=== PATIENT | female | born 1930 | race Caucasian/White ===

== ENCOUNTER 2017-06-13 15:15 | Outpatient (CLI) | payer MEDICARE, BC ==
--- NOTE | 2017-06-13 18:08 | ULT ---
ULTRASOUND WITH DOPPLER DUPLEX VENOUS LOWER EXTREMITY LEFT: 06/13/17 HISTORY: 86-year-old female with left leg pain, M79.605. Focal painful area at the lateral aspect of the mid calf. TECHNIQUE: Color flow Doppler, spectral waveform analysis of pulsed Doppler, and cunningham-scale imaging with cristina iftikhar and augmentation, were used to evaluate the left common femoral, femoral, popliteal, posterior t ibial, and superficial femoral, veins; and the proximal portions of the profunda femoral and greater saphenous, veins. FINDINGS: There is normal compressibility, demonstration of blood flow by color Doppler and pulsed Doppler, and response to augmentation, in all interrogated veins. There is a heterogeneously moderately hyperecho ic mass with ill-defined margins at the lateral aspect of the left mid calf, corresponding to the reg ion of pain. This mass produces acoustic shadowing, and measures approximately 2.5 x 3 x 1.5 cm. IMPRESSION: 1. No deep vein thrombosis in the left lower extremity. 2. Heterogeneously hyperechoic, apparently solid mass at the left lateral calf, corresponding to the site of the pain. Unknown etiology. Recommend further evaluation with MRI of the left leg (calf) with and without contrast (if there are contraindications to MRI, CT with contrast would be recommen ded). alison[] POS: LULI
== END 2017-06-13 15:16 | disposition home or self-care (01) ==
LOC: ULT 15:15
PROVIDERS: ATTEND Family Medicine
DX: M79.605 Pain in left leg (principal); R22.42 Localized swelling, mass and lump, left lower limb

== ENCOUNTER 2017-06-28 08:55 | Outpatient (CLI) | payer MEDICARE, BC ==
[2017-06-28] MEDS ORDERED: Gadobenate Dimeglumine 529 MG/1 ML (20ML VIAL) ONE ×2 (12:07→12:08)
--- NOTE | 2017-06-28 12:49 | MRI ---
MRI LEFT LOWER EXTREMITY WITH AND WITHOUT CONTRAST: HISTORY: Mass. COMPARISON: Ultrasound 06/13/17. FINDINGS: BONES: Intact. No fracture. No malalignment. No fracture. No malalignment. No periosteal osteitis or er osions. Normal marrow signal. No marrow signal replacement. MUSCLES: Within the most lateral margin of the psoas muscle just lateral to the fibular cortex is a well-defin ed area of T1 hyperintense, T2 hypointense, and complete loss of signal fat suppressed images mass me asuring 2.6 x 0.9 x 2.5 cm. There are normal muscle fibers coursing through this. This occurs at the area of interest marker. No overlying fascial thickening. The remainder of the muscles appear normal. There could be some low-grade fluid signal within the bi lateral head gastrocnemius as well as sartorius. No significant muscle atrophy. 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 No abnormal enha ncement to suggest sarcomatous degeneration. POS: [facility]
== END 2017-06-28 08:56 | disposition home or self-care (01) ==
LOC: MRI 08:55
PROVIDERS: ATTEND Family Medicine
DX: R22.42 Localized swelling, mass and lump, left lower limb (principal); D17.9 Benign lipomatous neoplasm, unspecified
CPT/HCPCS: A9579

== ENCOUNTER 2017-10-09 09:42 | Outpatient (CLI) | payer MEDICARE, BC | END 2017-10-09 09:43 | disposition home or self-care (01) | LOC: BICMAMMO 09:42 | PROVIDERS: ATTEND Family Medicine | DX: M81.0 Age-related osteoporosis without current pathological fracture (principal); M85.852 Other specified disorders of bone density and structure, left thigh | CPT/HCPCS: 77080 ==

== ENCOUNTER 2018-09-12 07:32 | Emergency (ER) | payer MEDICARE, BC ==
--- NOTE | 2018-09-12 09:05 | RAD ---
EXAM: CHEST TWO VIEWS: History: Cough. Comparison: 06-23-15 FINDINGS: Heart size is within normal limits. Mild increased linear interstitial markings bilaterally. 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 Biapical pleural thickening. No confluent pneumonia, overt ed sky, or pleural effusion. IMPRESSION: Mild chronic lung changes. No acute intrathoracic disease. Atherosclerosis of the aorta. POS: [facility]
== END 2018-09-12 08:30 | disposition home or self-care (01) ==
LOC: SCSER 07:32
DX: J06.9 Acute upper respiratory infection, unspecified (principal); E78.5 Hyperlipidemia, unspecified; I10 Essential (primary) hypertension; Z79.82 Long term (current) use of aspirin; Z79.899 Other long term (current) drug therapy
CPT/HCPCS: 71046